=== PATIENT | male | born 1985 | race African-American/Black ===

== ENCOUNTER 2018-09-08 20:52 | Emergency (ER) | payer SELFPAY ==
[~2018-09-08] VITALS: Ht 172.7 cm; Wt 68.2 kg
[~2018-09-08 20:52] MED LIST: PERCOCET 325 MG1 TA2 PO
[2018-09-08 20:56] VITALS: TEMP 98
[2018-09-08 21:36] LABS: BASO # 0.1 (0.0-0.2); BASO % 0.9 % (0.0-2.0); EOS # 0.1 (0.0-0.7); EOS % 0.7 % (0-4.0); GRAN # 4.5 (1.4-6.5); GRAN % 50.6 % (42.2-75.2); HEMATOCRIT 51.5 % (42.0-52.0); HEMOGLOBIN 17.9 g/dl (13.5-18.0); LYMPH # 3.6 (1.2-3.4); MEAN CELL VOLUME 84 fl (80.0-100.0); MEAN CORPUSCULAR HEMOGLOBIN 29 pg (27.0-31.0); MEAN CORPUSCULAR HGB CONC 35 g/dl (33.0-37.0); MEAN PLATELET VOLUME 8.7 fl (7.4-10.4); MONO # 0.7 (0.1-0.6); MONO % 7.5 % (1.7-9.3); PLATELET COUNT 326 K/mm3 (130-400); RED BLOOD COUNT 6.11 M/mm3 (4.20-5.60); REDCELL DISTRIBUTION WIDTH-CV 13.2 % (11.5-14.5)
[2018-09-08 21:49] LABS: ALANINE AMINOTRANSFERASE 6 U/L (21-72); ALBUMIN 4.9 gm/dL (3.5-5.0); ALKALINE PHOSPHATASE 81 U/L (50-136); ANION GAP 19 mmol/L (7-16); AST,SGOT 30 U/L (15-37); BILIRUBIN,TOTAL 0.7 mg/dL (0.0-1.0); BLOOD UREA NITROGEN 8 mg/dL (9-20); CALCIUM 10.7 mg/dL (8.4-10.2); CARBON DIOXIDE 17 mmol/L (22-30); CHLORIDE 103 mmol/L (98-107); CREATININE, serum 1.33 (0.66-1.25); GLUCOSE 97 mg/dL (74-106); LIPASE 39 U/L (23-300); POTASSIUM 3.2 mmol/L (3.4-5.0); SODIUM 139 mmol/L (137-145); TOTAL PROTEIN 8.3 gm/dL (6.4-8.2)
[2018-09-08 21:59] LABS: ACETAMINOPHEN < 10 ug/mL (10-30); ALCOHOL(ethanol),MEDICAL < 10 mg/dL; SALICYLATE < 1.0 mg/dL; TROPONIN-I < 0.012 ng/mL (0.000-0.035)
[2018-09-09 00:07] LABS: TRICYCLIC ANTIDEPRESS URINE NEGATIVE
[2018-09-09 01:15] VITALS: BP 140/96; PULSE 106
== END 2018-09-09 01:15 | disposition home or self-care (01) ==
LOC: EDBD 20:52 → COL.ER 20:52
PROVIDERS: Emergency Medicine
DX: S61.402A Unspecified open wound of left hand, initial encounter (principal); M85.871 Other specified disorders of bone density and structure, right ankle and foot; R07.89 Other chest pain; F15.10 Other stimulant abuse, uncomplicated; F17.210 Nicotine dependence, cigarettes, uncomplicated; X58.XXXA Exposure to other specified factors, initial encounter
CPT/HCPCS: J2060; J7030

== ENCOUNTER 2018-11-21 22:51 | Emergency (ER) | payer SELFPAY ==
[~2018-11-21] VITALS: Ht 172.7 cm; Wt 72.7 kg
[2018-11-21 22:55] VITALS: TEMP 99.9
[2018-11-22] MEDS ORDERED: CEPHALEXIN500 M1 PO (00:51)
[2018-11-22 01:15] VITALS: BP 138/97; PULSE 110
== END 2018-11-22 01:15 | disposition home or self-care (01) ==
LOC: COL.ER 22:51
DX: S02.2XXA Fracture of nasal bones, initial encounter for closed fracture (principal); S66.921A Laceration of unspecified muscle, fascia and tendon at wrist and hand level, right hand, initial encounter; F17.210 Nicotine dependence, cigarettes, uncomplicated; Z23 Encounter for immunization; W26.0XXA Contact with knife, initial encounter
CPT/HCPCS: Q4021